=== PATIENT | male | born 1995 | race Caucasian/White ===

== ENCOUNTER 2021-08-27 14:57 | Emergency (ER) | payer OTHER ==
[~2021-08-27] VITALS: Ht 175.3 cm; Wt 68.6 kg
[2021-08-27 14:59] VITALS: BP 113/74
[2021-08-27] MEDS ORDERED: RITA20CA PO (15:13)
[2021-08-27] MEDS ORDERED: DERMABOND TOPICAL SKIN ADHESIVE TOP ONE (18:15)
[2021-08-27] MEDS ORDERED: BACTRIM 160MG/800MG DS TAB PO ONE (18:15)
[2021-08-27] MEDS ORDERED: BACT800T5 PO (18:48)
== END 2021-08-27 19:10 | disposition home or self-care (01) ==
LOC: M ED 14:57
DX: S61.210A Laceration without foreign body of right index finger without damage to nail, initial encounter (principal); W26.8XXA Contact with other sharp object(s), not elsewhere classified, initial encounter; Y92.099 Unspecified place in other non-institutional residence as the place of occurrence of the external cause; Y93.9 Activity, unspecified; Y99.9 Unspecified external cause status; F90.9 Attention-deficit hyperactivity disorder, unspecified type; Z88.8 Allergy status to other drugs, medicaments and biological substances

== ENCOUNTER 2022-03-11 16:20 | Emergency (ER) | payer OTHER ==
[~2022-03-11] VITALS: Ht 175.3 cm; Wt 68.6 kg
[~2022-03-11 16:20] MED LIST: BACT800T5 PO; RITA20CA PO
[2022-03-11] MEDS ORDERED: D 50CAP2 (16:29)
[2022-03-11] MEDS ORDERED: KETOROLAC TROMETHAMINE 10 MG TAB PO ONE (22:05)
[2022-03-11] MEDS ORDERED: LIDOCAINE 5% (LIDODERM) PATCH TD ONE (22:05)
[2022-03-11] MEDS ORDERED: KETO10TAB PO (22:10)
[2022-03-11] MEDS ORDERED: METH-1165 PO (22:10)
[2022-03-11] MEDS ORDERED: LIDO5DIS41 TOP (22:10)
[2022-03-11 22:31] VITALS: BP 120/80
== END 2022-03-11 22:33 | disposition home or self-care (01) ==
LOC: M ED 16:20
DX: S39.012A Strain of muscle, fascia and tendon of lower back, initial encounter (principal); F90.9 Attention-deficit hyperactivity disorder, unspecified type; Z88.8 Allergy status to other drugs, medicaments and biological substances; Z79.899 Other long term (current) drug therapy

== ENCOUNTER → 2022-05-26 | Outpatient (REF) ==
[~2022-05-26] MED LIST changes: +D 50CAP2; +KETO10TAB PO; +LIDO5DIS41 TOP; +METH-1165 PO
== END ==
LOC: M PLAIMG 11:31
PROVIDERS: ATTEND Internal Medicine
DX: R06.02 Shortness of breath (principal)